=== PATIENT | female | born 1955 | race African-American/Black ===

== ENCOUNTER 2017-12-19 08:29 | Emergency (ER) | payer SELFPAY ==
[2017-12-19 09:01] LABS: #Lymphocytes 2.7 thou/uL (1.20-3.40); #Monocytes 0.6 thou/uL (0.11-0.59); #Neutrophils 3.1 thou/uL (1.40-6.50); %Basophils 0.6 % (0.0-1.0); %Eosinophils 0.7 % (0.0-10.0); %Lymphocytes 42.3 % (21.0-51.0); %Monocytes 8.7 % (0.0-10.0); %Neutrophils 47.7 % (42.0-75.0); Hemoglobin 13.7 g/dL (12.0-16.0); Mean Corpuscular HGB CONC 34.2 g/dL (32.0-36.0); Mean Corpuscular Volume 93.4 fl (81.0-99.0); Mean Platelet Volume 8.7 fL (7.4-10.4); Platelet Count 208 thou/uL (130-400); RBC Distribution Width 12.1 % (11.5-14.5); Red Blood Cell (RBC) Count 4.29 mill/uL (4.20-5.40); White Blood Cell (WBC) Count 6.4 thou/uL (4.8-10.8)
[2017-12-19 09:23] LABS: ALT (SGPT) 10 U/L (8-55); AST (SGOT) 14 U/L (5-34); Albumin 4.1 g/dL (3.4-4.8); Alkaline Phosphatase 61 U/L (40-150); Anion Gap 9 mmol/L (10-20); BUN (Urea Nitrogen) 10 mg/dL (9.8-20.1); Bilirubin, Total 0.5 mg/dL (0.2-1.2); CK (CPK) 87 U/L (29-168); Calc. Creatinine Clearance 0 mL/min (70-130); Calcium 9.5 mg/dL (7.8-10.44); Carbon Dioxide 27 mmol/L (23-31); Chloride 108 mmol/L (98-107); Estimated GFR-MDRD 71; Globulin 3.3 g/dL (2.4-3.5); Glucose 99 mg/dL (80-115); Potassium 3.4 mmol/L (3.5-5.1); Protein, Total 7.4 g/dL (6.0-8.3); Sodium 141 mmol/L (136-145)
[2017-12-19 09:28] LABS: CKMB 0.5 ng/mL (0-6.6); Troponin I Less than 0.010 ng/mL (< 0.028)
--- NOTE | 2017-12-19 10:22 | RAD ---
AP CHEST: HISTORY: Chest pain. FINDINGS: The lung lezama are clear. No evidence of infiltrate or vascular congestion. Heart size is within t he normal range. Mild scoliotic curvature of the thoracic spine is noted. IMPRESSION: No acute process. POS: [facility]
[2017-12-19 11:09] LABS: Bilirubin Negative (Negative); Blood, Urine Negative (Negative); Glucose, Urine (Dipstick) Negative (Negative); Leukocyte Negative (Negative); Nitrite Negative (Negative); Protein, Urine (Dipstick) Negative (Neg-Trace); Urobilinogen 0.2 mg/dL (0.2-1.0)
[2017-12-19 11:13] LABS: Clarity Clear (Clear)
== END 2017-12-19 13:08 | disposition home or self-care (01) ==
LOC: ERS 08:29
DX: R53.83 Other fatigue (principal); I25.2 Old myocardial infarction; Z79.899 Other long term (current) drug therapy
CPT/HCPCS: 36415; 71045; 80053; 81003; 82550; 82553; 83880; 84484; 85025; 93005; 94760

== ENCOUNTER 2018-11-07 14:40 | Outpatient (CLI) | payer OTHER ==
--- NOTE | 2018-11-07 16:01 | MRI ---
MRI OF LUMBAR SPINE WITHOUT CONTRAST: 11/07/18 Multiplanar and multisequential imaging lumbar spine obtained. INDICATIONS: Intervertebral disc disorder with radiculopathy. Low back pain and lumbar radiculopathy. Left hip darnell n. FINDINGS: Lumbar vertebrae maintain normal height and alignment. The disc spaces are normally maintained. Very mild degenerative osteophytes. No significant disc bulge or disc protrusion seen at L1-2, L2-3, L3-4 or L4-5. Mild facet arthrosis a t these levels; however, no central canal or foraminal stenosis seen at any of these levels. At L5-S1, there is an annular fissure with broad based disc bulge abutting the anterior thecal sac. F acet arthrosis and hypertrophy. No significant central canal stenosis. Mild foraminal narrowing bila terally due to the broad based disc bulge and facet hypertrophy. IMPRESSION: Annular fissure with broad based disc bulge at L5-S1 abuts the anterior thecal sac. There may be a sm all protrusion paracentrally to the right as seen on the sagittal imaging. This does abut the tucker ing right S1 nerve root. POS: [facility]
== END 2018-11-07 14:41 | disposition home or self-care (01) ==
LOC: BICMRI 14:40
PROVIDERS: ATTEND Specialist
DX: M51.16 Intervertebral disc disorders with radiculopathy, lumbar region (principal); M51.17 Intervertebral disc disorders with radiculopathy, lumbosacral region
CPT/HCPCS: 72148

== ENCOUNTER 2018-12-15 14:50 | Outpatient (CLI) | payer OTHER ==
--- NOTE | 2018-12-23 16:19 | MMO ---
Bilateral MAMMO Bilat Screen [facility]. CLINICAL HISTORY: Patient is 63 years old and is seen for screening. The patient has no family history of breast cancer. The patient has no personal history of cancer. VIEWS: The views performed were: bilateral craniocaudal with tomosynthesis; bilateral mediolateral oblique with tomosynthesis; and bilateral exaggerated craniocaudal. MAMMOGRAM FINDINGS: There are scattered fibroglandular densities. There are benign appearing calcifications seen in both breasts. There are no suspicious masses, suspicious calcifications, or new areas of architectural distortion. IMPRESSION: THERE IS NO MAMMOGRAPHIC EVIDENCE OF MALIGNANCY. A ROUTINE FOLLOW-UP MAMMOGRAM IN 1 YEAR IS RECOMMENDED. THE RESULTS OF THIS EXAM WERE SENT TO THE PATIENT. ACR BI-RADS Category 2 - Benign finding MAMMOGRAPHY NOTE: 1. A negative mammogram report should not delay a biopsy if a dominant of clinically suspicious mass is present. 2. Approximately 10% to 15% of breast cancers are not detected by mammography. 3. Adenosis and dense breasts may obscure an underlying neoplasm.
== END 2018-12-15 14:51 | disposition home or self-care (01) ==
LOC: BICMAMMO 14:50
PROVIDERS: ATTEND Family Medicine
DX: Z12.31 Encounter for screening mammogram for malignant neoplasm of breast (principal)
CPT/HCPCS: 77063; 77067

== ENCOUNTER 2019-04-07 09:00 | Outpatient (CLI) | payer OTHER ==
--- NOTE | 2019-04-07 09:43 | RAD ---
PA AND LATERAL CHEST: HISTORY: Shortness of breath. COMPARISON: 12/19/2017 FINDINGS: The heart size is normal. The aorta is tortuous. The lungs are well expanded without lobar consolid ation, pneumothoraces, or pleural effusions. Scoliosis of the spine is again seen. IMPRESSION: No radiographic evidence of acute cardiopulmonary process. POS: [facility]
== END 2019-04-07 09:01 | disposition home or self-care (01) ==
LOC: BICRAD 09:00
PROVIDERS: ATTEND Family Medicine
DX: R06.02 Shortness of breath (principal)
CPT/HCPCS: 71046

== ENCOUNTER 2020-09-10 07:56 | Inpatient (IN) | payer MEDICARE, MEDICAID ==
[2020-09-10] MEDS ORDERED: Rocuronium Bromide 10 MG/ML (10ML VIAL) ONE (08:03)
[2020-09-10 08:21] LABS: #Eosinphils 0.1 thou/uL (0.0-0.7); #Monocytes 0.8 thou/uL (0.11-0.59); #Neutrophils 9.6 thou/uL (1.40-6.50); %Basophils 0.2 % (0.0-1.0); %Eosinophils 0.4 % (0.0-10.0); %Lymphocytes 22.3 % (21.0-51.0); %Monocytes 5.6 % (0.0-10.0); %Neutrophils 71.5 % (42.0-75.0); Mean Corpuscular HGB CONC 32.2 g/dL (32.0-36.0); Mean Corpuscular Hemoglobin 31.5 pg (27.0-31.0); Mean Corpuscular Volume 97.6 fL (78.0-98.0); Mean Platelet Volume 8.8 fL (7.4-10.4); Platelet Count 160 thou/uL (130-400); RBC Distribution Width 12.7 % (11.5-14.5); Red Blood Cell (RBC) Count 5.41 mill/uL (4.20-5.40); White Blood Cell (WBC) Count 13.5 thou/uL (4.8-10.8)
[2020-09-10 09:09] LABS: ALT (SGPT) 122 U/L (8-55); AST (SGOT) 338 U/L (5-34); Albumin 3.8 g/dL (3.4-4.8); Alkaline Phosphatase 72 U/L (40-110); BUN (Urea Nitrogen) 28 mg/dL (9.8-20.1); Bilirubin, Total 0.6 mg/dL (0.2-1.2); Calc. Creatinine Clearance 0 mL/min (70-130); Calcium 9.1 mg/dL (7.8-10.44); Chloride 101 mmol/L (98-107); Glucose 153 mg/dL (80-115); Potassium 5.2 mmol/L (3.5-5.1); Protein, Total 7.8 g/dL (6.0-8.3); Sodium 138 mmol/L (136-145)
--- NOTE | 2020-09-10 09:27 | RAD ---
Chest AP view INDICATION: ST elevation NV alert COMPARISON: April 07, 2019 FINDINGS: Lungs: There is increased airspace disease of the left lower lobe Cardiac silhouette: The cardiomediastinal silhouette appears within normal limits. Pulmonary vasculature: Normal Pleural spaces: No pleural effusion or pneumothorax is demonstrated. Upper abdomen: No abnormality seen. Osseous structures: No acute osseous abnormality. Additional findings: Patient is intubated with the ET tube tip seen at the thoracic inlet. Gastric c atheter projects below the left hemidiaphragm and beyond the [id number]. There is a left IJ central venous catheter projecting in the region of the SVC. No pneumothorax. IMPRESSION: 1. Airspace disease in the left lower lobe may reflect subsegmental volume loss, pneumonia or aspira tion. Continued follow-up is recommended. 2. ET tube, gastric catheter and left IJ central venous catheter.
[2020-09-10 09:44] LABS: Carbon Dioxide Less than 8 mmol/L (23-31)
[2020-09-10 10:10] LABS: SARS-CoV-2 NAA Rapid Test DETECTED (NotDetected)
[2020-09-10 10:12] LABS: CKMB 76.7 ng/mL (0-6.6)
[2020-09-10] MEDS ORDERED: Sodium Chloride 0.9% 200 ML IV PRN (10:18)
[2020-09-10] MEDS ORDERED: Sodium Chloride 0.9% 1,000 ML IV SCH (10:30)
--- NOTE | 2020-09-10 11:21 | PRG ---
DATE OF SERVICE: 09/10/2020 with her mother. Blood pressure is drifting down in the 60s in spite of maximum dose of epinephrine support and a balloon pump counterpulsation. This is not a survival situation, I have explained to the daughter. I have also explained to the daughter for second time that she underwent a code in the emergency room, a code in the cathead operator, and a code up here, and continuing to run code would not be successful. She agreed that we would not code her again. Job ID: [id number] MTDD
--- NOTE | 2020-09-10 11:39 | CON ---
DATE OF CONSULTATION: 09/10/2020 HISTORY OF PRESENT ILLNESS: Ms. Javier is a 65-year-old female, who presented with chest discomfort and shortness of breath. She had an EKG that was abnormal, and she was taken to lab tester. She apparently coded in the emergency department and coded again as she was arriving in the lab tester. Catheterization showing no coronary artery disease that was significant. According to the daughter, she is followed by Dr. Byers here in town, and in the past, wore LifeVest, but her daughter thinks her cardiac function improved to a point where she did need the LifeVest anymore. It turns out Ms. Javier's COVID screen is positive. PAST MEDICAL HISTORY: Otherwise, unknown. FAMILY HISTORY: Otherwise, unknown. REVIEW OF SYSTEMS: Not obtainable. PHYSICAL EXAMINATION: GENERAL: When she arrived from the lab tester, she coded again. She responded to 1 amp of epinephrine and an amp of bicarb. HEENT: Her pupils are sluggish. Sclerae are anicteric. CHEST: Coarse equal breath sounds. HEART: Regular rhythm. ABDOMEN: Soft. EXTREMITIES: Without asymmetry. LABORATORY DATA: White count 13.5, hemoglobin 17, and platelets 160. Sodium 138, potassium 5.2, chloride 101, bicarb less than 8, BUN 28, creatinine 2.65. Troponin was 25. IMPRESSION: Status post multiple cardiac arrests with severe cardiomyopathy. Her ejection fraction was 5% to 10% with no significant obstructive coronary artery disease. I met with the daughter and answered all of her questions. I have explained that continuing to do chest compressions and code, Ms. Javier is unlikely to lead to any type of functional or survivable outcome. I explained to her that we will keep current measures in place, which included balloon pump and mechanical ventilation. It is highly likely she will pass away. Daughter understood and agreed with a plan of care. CRITICAL CARE TIME: 45 minutes. Job ID: [id number] MTDD
[2020-09-10] MEDS ORDERED: EPINEPHrine 1 MG/10 ML Abboject SYRINGE ONE (11:48)
[2020-09-10] MEDS ORDERED: Sodium Bicarb 50 MEQ/50 ML Abboject 8.4% SYRINGE ONE (11:48)
[2020-09-10] MEDS ORDERED: Iopamidol 370 76% 100 ML VIAL ONE (11:57)
[2020-09-10 12:21] LABS: Actual Bicarbonate (HCO3a) 6.4 mEq/L (22-28); Base Excess (BEa) -21.7 mEq/L (-2.0 to +3.0); Calcium, Ionized (arterial) 1.17 mmol/L (1.12-1.30); Carboxyhemoglobin (COHb) 0.2 gm% (0.0-3.0); Hemoglobin (Hb) 14.3 g/dL (12.0-16.0); O2 Tension (PaO2), arterial 144.8 mmHg (> 80.0); Potassium - ABG Lab 4.68 mmol/L (3.70-5.30)
[2020-09-10 12:23] LABS: CO2 Tension 21.7 mmHg (35.0-45.0); Puncture Site Arterial Line; pH, Arterial 7.09 (7.35-7.45)
[2020-09-10 12:29] LABS: ALV-art Gradient 541.075 mmHg (0-20)
[2020-09-10] MEDS ORDERED: EPINEPHrine 4 MG in Dextrose 5% in Water 250 ML IV SCH (13:00)
[2020-09-10 13:17] VITALS: TEMP 96.2
--- NOTE | 2020-09-10 14:44 | DIS ---
DATE OF CONSULTATION: summary. The patient was a 65-year-old woman with a history of cardiomyopathy, who presented with acute cardiogenic shock. HOSPITAL COURSE: The patient was noted to have significant ST elevation and hypotension. She arrested in the ER. She was brought emergently to the cardiac catheterization laboratory. She was found to have mild coronary artery disease with a severe reduction in left ventricular systolic function. The patient was coded on several occasions. The patient subsequently went asystole. She was pronounced at 1317 hours. The patient's family was notified. Job ID: [id number] MTDD
--- NOTE | 2020-09-11 03:40 | HP ---
DATE OF CONSULTATION: Total critical care time 45 minutes. HISTORY OF PRESENT ILLNESS: Ms. Javier is a 65-year-old woman who recently presented to the emergency room for shortness of breath. The history is obtained from her daughter. She states she saw a neurologist on Saturday. There was difficulty in palpating her blood pressure. She then had nausea, vomiting and diarrhea yesterday. Her daughter states she decided to rest. This morning, she woke with shortness of breath and proceeded to the emergency room. The daughter states there was no chest pain or pressure noted. The daughter did state she had significant exposure to COVID pneumonia. PAST MEDICAL HISTORY: Cardiomyopathy, seen by Dr. Camron Byers. ALLERGIES: ASPIRIN, CIPRO, IODINE, PENICILLIN, SULFA, TETANUS. REVIEW OF SYSTEMS: Unobtainable. PHYSICAL EXAMINATION: GENERAL: Patient is a pleasant woman who is in no acute distress. The patient appears their stated age. VITAL SIGNS: Initial blood pressure was nonpalpable and after CPR blood pressure was in the 80s systolic. NEUROLOGIC: The patient is alert and oriented x3 with no focal neurologic deficits. HEENT: Sclerae without icterus. Mouth has moist mucous membranes with normal pallor. NECK: No JVD. Carotid upstroke brisk. No bruits bilaterally. LUNGS: Clear to auscultation with unlabored respirations. BACK: No scoliosis or kyphosis. CARDIAC: Regular rate and rhythm with normal S1 and S2. No S3 or S4 noted. No significant rubs, murmurs, thrills, or gallops noted throughout the precordium. PMI is not displaced. There is no parasternal heave. ABDOMEN: Soft, nontender, nondistended. No peritoneal signs present. No hepatosplenomegaly. No abnormal striae. EXTREMITIES: 2+ femoral and 2+ dorsalis pedis pulses. No cyanosis, clubbing, or edema. SKIN: No gross abnormalities. LABORATORY DATA: Hemoglobin 17, hematocrit 52.8, CO2 less than 8, creatinine 2.65. EKG, normal sinus rhythm with ST-segment elevation noted in the inferolateral regions as well as anterior region with mild reciprocal changes. ER COURSE: We decided to proceed with acute intervention due to ST-segment elevation. patient did have loss of pulse in the ER prior to coming to the label maker. The patient did have dopplerable pulse. We decided to have the patient come to the label maker despite minimal blood pressure. While in the label maker on the ER [facility], she did not have a palpable or dopplerable pulse. CPR ensued in the label maker for 10 minutes. After a round of epinephrine in addition to sodium bicarbonate, her blood pressure was dopplerable. It was decided to proceed with coronary angiography. Further recommendations pending the above. Job ID: [id number]
== END 2020-09-10 13:17 | disposition expired | DRG 270 ==
LOC: ERS 07:56 → CCL 09:36 → CCU 10:18
PROVIDERS: ADMIT Internal Medicine Cardiovascular Disease; ATTEND Internal Medicine Cardiovascular Disease
PROC: 5A12012 Performance of Cardiac Output, Single, Manual (ICD-10-PCS; principal; 2020-09-10)
PROC: 5A02210 Assistance with Cardiac Output using Balloon Pump, Continuous (ICD-10-PCS; 2020-09-10)
PROC: 0BH17EZ Insertion of Endotracheal Airway into Trachea, Via Natural or Artificial Opening (ICD-10-PCS; 2020-09-10)
PROC: 5A1935Z Respiratory Ventilation, Less than 24 Consecutive Hours (ICD-10-PCS; 2020-09-10)
PROC: 3E033XZ Introduction of Vasopressor into Peripheral Vein, Percutaneous Approach (ICD-10-PCS; 2020-09-10)
PROC: B2111ZZ Fluoroscopy of Multiple Coronary Arteries using Low Osmolar Contrast (ICD-10-PCS; 2020-09-10)
PROC: B2151ZZ Fluoroscopy of Left Heart using Low Osmolar Contrast (ICD-10-PCS; 2020-09-10)
PROC: 4A023N7 Measurement of Cardiac Sampling and Pressure, Left Heart, Percutaneous Approach (ICD-10-PCS; 2020-09-10)
PROC: 02HV33Z Insertion of Infusion Device into Superior Vena Cava, Percutaneous Approach (ICD-10-PCS; 2020-09-10)
DX: I21.09 ST elevation (STEMI) myocardial infarction involving other coronary artery of anterior wall (principal); U07.1 COVID-19; I42.9 Cardiomyopathy, unspecified; I46.2 Cardiac arrest due to underlying cardiac condition; I21.19 ST elevation (STEMI) myocardial infarction involving other coronary artery of inferior wall; Z88.0 Allergy status to penicillin; Z88.2 Allergy status to sulfonamides; Z88.1 Allergy status to other antibiotic agents; Z88.6 Allergy status to analgesic agent; Z88.8 Allergy status to other drugs, medicaments and biological substances; R57.0 Cardiogenic shock; I25.10 Atherosclerotic heart disease of native coronary artery without angina pectoris
CPT/HCPCS: 0240U; 31500; 33967; 36416; 36556; 51702; 71045; 76942; 80053; 82553; 82805; 84484; 85025; 93005; 93458; 96365; 96375; 96376; J0171; Q9967